=== PATIENT | male | born 1980 | race Caucasian/White ===

== ENCOUNTER 2021-01-25 11:27 | Emergency (ER) | payer OTHER ==
[2021-01-25 11:49] VITALS: RESP 18
[2021-01-25] MEDS ORDERED: ACETAMINOPHEN TAB 325 MG TAB PO STA (12:36)
[2021-01-25] MEDS ORDERED: IBUPROFEN 600 MG TAB PO STA (12:36)
--- NOTE | 2021-01-25 12:37 | ED ---
Recheck HPI - General Chief Complaint: Recheck/Abnormal Lab/Rx Stated Complaint: Covid+ Time Seen by Provider: 01/25/21 11:57 Source: patient, RN notes reviewed Mode of arrival: ambulatory Limitations: no limitations - History of Present Illness Initial Comments: Patient is a 40-year-old male that presents to the emergency department with a Covid positive test yesterday. Notes symptoms several days prior. He denied any symptoms or complaints at this time. He was otherwise well-appearing. He denied chest pain shortness breath headache nausea vomiting diarrhea constipation fever fatigue chills. - Related Data Previous Rx's Medication Instructions Recorded Hydrocodone/Acetaminophen [Sl[place] 1 each PO Q4HR PRN #15 tab 10/19/13 5-325] Allergies Allergy/AdvReac Type Severity Reaction Status Date / Time No Known Allergies Allergy Verified 01/25/21 11:49 Review of Systems ROS Statement: Those systems with pertinent positive or pertinent negative responses have been documented in the HPI. ROS Other: All systems not noted in ROS Statement are negative. Past Medical History Past Medical History: No Reported History History of Any Multi-Drug Resistant Organisms: None Reported Additional Past Surgical History / Comment(s): ent surgery Past Psychological History: Anxiety Smoking Status: Never smoker Past Alcohol Use History: None Reported Past Drug Use History: None Reported General Exam Limitations: no limitations General appearance: alert, in no apparent distress, obese Head exam: Present: atraumatic, normocephalic, normal inspection Eye exam: Present: normal appearance, PERRL, EOMI. Absent: scleral icterus, conjunctival injection, periorbital swelling ENT exam: Present: normal exam, mucous membranes moist Neck exam: Present: normal inspection Respiratory exam: Present: normal lung sounds bilaterally. Absent: respiratory distress, wheezes, rales, rhonchi, stridor Cardiovascular Exam: Present: regular rate, normal rhythm, normal heart sounds. Absent: systolic murmur, diastolic murmur, rubs, gallop, clicks GI/Abdominal exam: Present: soft, normal bowel sounds. Absent: distended, tenderness, guarding, rebound, rigid Extremities exam: Present: normal inspection, full ROM, normal capillary refill. Absent: tenderness, pedal edema, joint swelling, calf tenderness Neurological exam: Present: alert, oriented X3 Psychiatric exam: Present: normal affect, normal mood Skin exam: Present: warm, dry, intact, normal color. Absent: rash Course Vital Signs 01/25/21 11:47 Temperature 100.4 F H Pulse Rate 93 Respiratory 18 Rate Blood Pressure 121/81 O2 Sat by Pulse 100 Oximetry Medical Decision Making - Medical Decision Making 40-year-old male with Covid positive test requesting monoclonal antibody infusion. Patient does meet criteria. Monoclonal antibody infusion ordered. Patient is agreeable with discharge home after infusion. Case discussed with Dr. Marks, patient can discharge home. Disposition Clinical Impression: COVID Disposition: HOME SELF-CARE Condition: Stable Instructions (If sedation given, give patient instructions): Coronavirus Disease 2019 (COVID-19) Additional Instructions: Please return to the Emergency Department if symptoms worsen or any other concerns. Follow-up with primary care 1-2 days. Quarantine per CDC guidelines. Tylenol and Motrin as needed for any fevers. Plan rest and fluids. Is patient prescribed a controlled substance at d/c from ED?: No Referrals: Rickey Her MD [Primary Care Provider] - 1-2 days Time of Disposition: 12:37
[2021-01-25] MEDS ORDERED: SODIUM CHLORIDE 0.9% 50 ML IVPB ONE (13:00)
[2021-01-25] MEDS ORDERED: CASIRIVIMAB (REGN10933) (EUA) 600 MG, IMDEVIMAB (REGN10987) (EUA) 600 MG in SODIUM CHLO... IVPB ONE (13:15)
[2021-01-25 14:08] VITALS: TEMP 98.9
[2021-01-25 15:17] VITALS: BP 122/80; PULSE 81
== END 2021-01-25 15:08 | disposition home or self-care (01) ==
LOC: EC 11:27
DX: U07.1 COVID-19 (principal); E66.9 Obesity, unspecified; Z68.30 Body mass index [BMI] 30.0-30.9, adult
CPT/HCPCS: 99283; 96365; Q0243